=== PATIENT | male | born 1985 | race Caucasian/White ===

== ENCOUNTER 2020-03-24 11:07 | Emergency (ER) | payer BC ==
[2020-03-24 11:17] VITALS: RESP 18; TEMP 97.6
--- NOTE | 2020-03-24 11:47 | ED ---
GI Bleed HPI - General Chief complaint: GI Bleed Stated complaint: blood in stool Time Seen by Provider: 03/24/20 11:33 Source: patient, RN notes reviewed Mode of arrival: ambulatory Limitations: no limitations - History of Present Illness Initial comments: This a 34 show male presents emergency Department chief complaint of dark stools. Patient is a last couple days hes had black tarry-colored stools. Patient states that he also had some what appeared to be bright red blood when he wiped. He does have some mild discomfort when he hasn't vomited. Patient denies any significant GI history no prior colonoscopy no prior abdominal surgeries not taking iron supplement no dietary changes though he does state that he is a multiple boxes of Oreos recently. Patient denies any dysuria hematuria no sick contacts. - Related Data Previous Rx's Medication Instructions Recorded Hydrocortisone Pr Cream 1 applic RECTAL TID #1 tube 03/24/20 [Proctosol-Hc 2.5%] Allergies Allergy/AdvReac Type Severity Reaction Status Date / Time iodine Allergy Dyspnea Verified 03/24/20 11:10 shellfish derived [Shellfish] Allergy Dyspnea Verified 03/24/20 11:10 Review of Systems ROS Statement: Those systems with pertinent positive or pertinent negative responses have been documented in the HPI. ROS Other: All systems not noted in ROS Statement are negative. Past Medical History Additional Past Medical History / Comment(s): migraines History of Any Multi-Drug Resistant Organisms: None Reported Past Surgical History: Tonsillectomy Past Psychological History: No Psychological Hx Reported Smoking Status: Former smoker Past Alcohol Use History: Rare Past Drug Use History: None Reported, Marijuana General Exam Limitations: no limitations General appearance: alert, in no apparent distress Head exam: Present: atraumatic, normocephalic, normal inspection Eye exam: Present: normal appearance, PERRL, EOMI. Absent: scleral icterus, conjunctival injection, periorbital swelling ENT exam: Present: normal exam, normal oropharynx, mucous membranes moist Neck exam: Present: normal inspection, full ROM. Absent: tenderness, meningismus, lymphadenopathy Respiratory exam: Present: normal lung sounds bilaterally. Absent: respiratory distress, wheezes, rales, rhonchi, stridor Cardiovascular Exam: Present: regular rate, normal rhythm, normal heart sounds. Absent: systolic murmur, diastolic murmur, rubs, gallop, clicks GI/Abdominal exam: Present: soft, normal bowel sounds. Absent: distended, tenderness, guarding, rebound, rigid Rectal exam: Present: other (Small fissure noted there is small amount of bright red blood noted) Course Vital Signs 03/24/20 11:11 Temperature 97.6 F Pulse Rate 111 H Respiratory 18 Rate Blood Pressure 146/100 O2 Sat by Pulse 100 Oximetry Medical Decision Making - Medical Decision Making 34 show male presented for rectal bleeding. Patient states she had bright red blood and felt that his stools very tired. I do feel that his stools dark secondary to dietary changes. Patient has a small fissure noted on exam. Hemoglobin is stable. Patient provided hydrocortisone cream, advised to use fiber supplement, Tucks pads. - Lab Data Result diagrams: 03/24/20 11:55 03/24/20 11:55 Lab Results 03/24/20 03/24/20 Range/Units 11:55 11:55 WBC 6.5 (3.8-10.6) k/uL RBC 4.53 (4.30-5.90) m/uL Hgb 12.9 L (13.0-17.5) gm/dL Hct 39.1 (39.0-53.0) % MCV 86.3 (80.0-100.0) fL MCH 28.5 (25.0-35.0) pg MCHC 33.0 (31.0-37.0) g/dL RDW 13.4 (11.5-15.5) % Plt Count 168 (150-450) k/uL Neutrophils % 77 % Lymphocytes % 13 % Monocytes % 6 % Eosinophils % 2 % Basophils % 1 % Neutrophils # 5.0 (1.3-7.7) k/uL Lymphocytes # 0.8 L (1.0-4.8) k/uL Monocytes # 0.4 (0-1.0) k/uL Eosinophils # 0.1 (0-0.7) k/uL Basophils # 0.0 (0-0.2) k/uL Sodium 139 (137-145) mmol/L Potassium 3.9 (3.5-5.1) mmol/L Chloride 105 (98-107) mmol/L Carbon Dioxide 30 (22-30) mmol/L Anion Gap 4 mmol/L BUN 17 (9-20) mg/dL Creatinine 0.71 (0.66-1.25) mg/dL Est GFR (CKD-EPI)AfAm >90 (>60 ml/min/1.73 sqM) Est GFR (CKD-EPI)NonAf >90 (>60 ml/min/1.73 sqM) Glucose 93 (74-99) mg/dL Calcium 9.0 (8.4-10.2) mg/dL Total Bilirubin 0.2 (0.2-1.3) mg/dL AST 18 (17-59) U/L ALT 19 (4-49) U/L Alkaline Phosphatase 60 (38-126) U/L Total Protein 6.3 (6.3-8.2) g/dL Albumin 3.9 (3.5-5.0) g/dL Disposition Clinical Impression: Rectal bleeding, Anal fissure Disposition: HOME SELF-CARE Condition: Stable Instructions (If sedation given, give patient instructions): Anal Fissure (ED) Additional Instructions: Use [id number] fiber supplement and Tucks pads as directed. Please return to the Emergency Department if symptoms worsen or any other concerns. Prescriptions: Hydrocortisone Pr Cream [Proctosol-Hc 2.5%] 1 applic RECTAL TID #1 tube Is patient prescribed a controlled substance at d/c from ED?: No Referrals: Femi Henson MD [Primary Care Provider] - 1-2 days Time of Disposition: 13:01
[2020-03-24 12:06] LABS: Basophils % (A) 1 %; Eosinophils # (A) 0.1 k/uL (0-0.7); Eosinophils % (A) 2 %; HCT 39.1 % (39.0-53.0); HGB 12.9 gm/dL (13.0-17.5); Lymphocytes # (A) 0.8 k/uL (1.0-4.8); Lymphocytes % (A) 13 %; MCH 28.5 pg (25.0-35.0); MCV 86.3 fL (80.0-100.0); Mean Platelet Volume 9.4; Monocytes # (A) 0.4 k/uL (0-1.0); Monocytes % (A) 6 %; Neutrophils % (A) 77 %; Platelet Count 168 k/uL (150-450); RBC 4.53 m/uL (4.30-5.90); RDW 13.4 % (11.5-15.5); WBC 6.5 k/uL (3.8-10.6)
[2020-03-24 12:21] LABS: ALT 19 U/L (4-49); AST 18 U/L (17-59); African American GFR (CKD) >90 (>60 ml/min/1.73 sqM); Albumin 3.9 g/dL (3.5-5.0); Alkaline Phosphatase 60 U/L (38-126); Anion Gap 4 mmol/L; Blood Urea Nitrogen 17 mg/dL (9-20); Carbon Dioxide 30 mmol/L (22-30); Chloride 105 mmol/L (98-107); Glucose 93 mg/dL (74-99); Non-African American GFR(CKD) >90 (>60 ml/min/1.73 sqM); Potassium 3.9 mmol/L (3.5-5.1); Sodium 139 mmol/L (137-145); Total Bilirubin 0.2 mg/dL (0.2-1.3); Total Protein 6.3 g/dL (6.3-8.2)
[2020-03-24 13:00] VITALS: BP 149/93; PULSE 77
== END 2020-03-24 13:09 | disposition home or self-care (01) ==
LOC: EC 11:07
DX: K60.2 Anal fissure, unspecified (principal); Z87.891 Personal history of nicotine dependence; Z91.048 Other nonmedicinal substance allergy status; Z91.013 Allergy to seafood
CPT/HCPCS: 36415; 80053; 85025; 99284